=== PATIENT | female | born 1995 | race Caucasian/White ===

== ENCOUNTER → 2016-11-01 00:14 | Observation (INO) ==
[2016-10-31 23:04] VITALS: BP 124/60
[2016-10-31 23:21] LABS: Bilirubin,Urine Negative (Negative); Blood,Urine Moderate (Negative); Clarity,Urine Cloudy (Clear); Color,Urine Yellow (Yellow); Glucose,Urine (UA) Normal (Normal); Ketones,Urine Negative (Negative); Leukocyte Esterase,Urine Large (Negative); Nitrite,Urine Negative (Negative); PH,Urine 7.5 pH Units (5.0-8.0); Protein,Urine 100 mg/dL (Neg-Trace); Specific Gravity,Urine 1.007 (1.010-1.025); Urobilinogen,Urine Normal (Normal)
[2016-10-31 23:22] LABS: Bacteria,Urine Many per hpf (None-Few); Hyaline Casts,Urine None Seen per lpf (None-Few); Squamous Epithelial Cell,Urine Many per lpf (None-Few); WBC,Urine 50-100 per hpf (0-3)
--- NOTE | 2016-11-01 00:03 | Discharge Summary ---
Date of Encounter: 11/01/16 Time of Encounter: 00:01 - Discharge Diagnosis (1) 20 weeks gestation of Priority: Secondary Status: Acute Comments: admit for observation (2) UTI (urinary tract infection) Priority: Primary Status: Acute Comments: Treat with Macrobid 100 mg PO BID x 7 days follow up as scheduled in office Qualifiers: Urinary tract infection type: acute cystitis Hematuria presence: without hematuria Qualified Code(s): N30.00 - Acute cystitis without hematuria - Discharge Medications Prescriptions: Nitrofurantoin (BID) [Macrobid] 100 mg PO BID #14 capsule Home Medications: Tablet 1 tab PO DAILY 10/31/16 [History] Nitrofurantoin (BID) [Macrobid] 100 mg PO BID #14 capsule 11/01/16 [Rx] Allergies/Adverse Reactions: Allergies No Known Allergies Allergy (Verified 10/31/16 22:51) Data Procedures and tests throughout hospitalization: Laboratory Tests 10/31/16 23:05 Urine Color Yellow Urine Clarity Cloudy A Urine pH 7.5 Ur Specific [place] 1.007 L Urine Protein 100 H Urine Glucose (UA) Normal Urine Ketones Negative Urine Blood Moderate H Urine Nitrite Negative Urine Bilirubin Negative Urine Urobilinogen Normal Ur Leukocyte Esterase Large H Urine Microscopic RBC 5-15 H Urine Microscopic WBC 50-100 H Ur Squamous Epith Cells Many H Urine Bacteria Many H Hyaline Casts None Seen Ur Culture Indicated? YES A Labs on day of discharge: Labs from last 24 hours 10/31/16 23:05 Urine Color Yellow Urine Clarity Cloudy A Urine pH 7.5 Ur Specific [place] 1.007 L Urine Protein 100 H Urine Glucose (UA) Normal Urine Ketones Negative Urine Blood Moderate H Urine Nitrite Negative Urine Bilirubin Negative Urine Urobilinogen Normal Ur Leukocyte Esterase Large H Urine Microscopic RBC 5-15 H Urine Microscopic WBC 50-100 H Ur Squamous Epith Cells Many H Urine Bacteria Many H Hyaline Casts None Seen Ur Culture Indicated? 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 Patient was assessed by RN. FHT 140's. no contractions noted. Patient discharged home. Time Attestation: Total time spent providing and/or coordinating discharge services: Exam - Constitutional Vitals: Temp Pulse Resp BP 97.4 F L 86 14 124/60 10/31/16 22:55 10/31/16 22:55 10/31/16 22:55 10/31/16 22:55 - VTE Reasons for not Prescribing Prophylaxis: Treatment not Indicated - Low risk for VTE
== END | disposition home or self-care (01) ==
LOC: 1NENULAB
PROVIDERS: ADMIT Advanced Practice Midwife; ATTEND Advanced Practice Midwife

== ENCOUNTER → 2017-03-04 17:02 | Observation (INO) ==
--- NOTE | 2017-03-04 16:04 | OB/GYN Progress Note ---
Date of Encounter: 03/04/17 Time of Encounter: 16:02 - Assessment and Plan (1) 38 weeks gestation of Current Visit: Yes Status: Acute (2) Vaginal discharge during in third trimester Current Visit: Yes Status: Acute SSE with negative pool, nitrazine and fern. Physiologic appearing discharge in vault. (3) NST (non-stress test) reactive Current Visit: Yes Status: Acute Subjective - Subjective Interval history: 21 year-old presenting at 38 weeks with c/o one small gush of clear fluid and increased vaginal discharge since 1400 today. She also reports some occassional abdominal tightening. No other complaints. Good FM. Antepartum ROS: loss of fluid, movement normal, no vaginal bleeding, no contractions Objective - Vital Signs Vital Signs: Intake and Output 03/04/17 03/04/17 03/04/17 07:59 15:59 23:59 Other: Weight 66.6 kg Patient Weight 03/04/17 23:59 Weight 66.6 kg - Exam FHR: category 1 FHR comments: NST reactive Auscultation: bilateral: normal Abdomen: Present: soft, gravid. Absent: tenderness Uterus: Absent: tenderness Cervical dilation: 3, unchanged from last exam in office Comments: SSE with physiologic appearing discharge in vault. Negative pool, nitrazine, and fern.
[2017-03-04 16:06] LABS: Bilirubin,Urine Negative (Negative); Blood,Urine Negative (Negative); Clarity,Urine Cloudy (Clear); Color,Urine Yellow (Yellow); Glucose,Urine (UA) Normal (Normal); Ketones,Urine Negative (Negative); Leukocyte Esterase,Urine Trace (Negative); Nitrite,Urine Negative (Negative); Protein,Urine Negative (Neg-Trace); Specific Gravity,Urine 1.013 (1.010-1.025); Urobilinogen,Urine Normal (Normal)
[2017-03-04 16:07] LABS: Bacteria,Urine Few per hpf (None-Few); Hyaline Casts,Urine None Seen per lpf (None-Few); RBC,Urine 0-3 per hpf (0-3); Squamous Epithelial Cell,Urine Many per lpf (None-Few)
== END | disposition home or self-care (01) ==
LOC: 1NENULAB
PROVIDERS: ADMIT Registered Nurse; ATTEND Registered Nurse

== ENCOUNTER 2017-03-10 09:23 | Observation (INO) ==
--- NOTE | 2017-03-10 10:16 | OB/GYN Progress Note ---
Date of Encounter: 03/10/17 Time of Encounter: 10:14 - Assessment and Plan (1) Vaginal bleeding during , antepartum Current Visit: Yes Status: Acute Speculum exam shows vaginal vault with jernigan discharge, very little blood noted. Nitrazine equivocal, Fern negative, VE 3/80/-2. Vaginosis panel sent and pending. Pt not feeling contractions. Will discharge to home with labor precautions. Reactive NST baseline 145 Qualifiers: Trimester: third trimester Qualified Code(s): O46.93 - Antepartum hemorrhage, unspecified, third trimester (2) NST (non-stress test) reactive Current Visit: No Status: Acute Baseline 145 Subjective - Subjective Interval history: Pt reports she started to have vaginal bleeding this morning. Pt states it ranges from light pink to a "more concerning red". Pt states she saturated a pantyliner in 2 hours. Came in for evaluation. Reports good movement, she think she is leaking some clear fluid as well. Occasional cramping, but does not feel they are contractions. No other complaints. Antepartum ROS: new complaints, loss of fluid, vaginal bleeding, movement normal, no contractions Objective - Vital Signs Vital Signs: Intake and Output 03/09/17 03/10/17 03/10/17 23:59 07:59 15:59 Other: Weight 67.5 kg Patient Weight 03/10/17 23:59 Weight 67.5 kg - Exam FHR: auscultation normal FHR comments: Baseline 145 reactive NST Auscultation: bilateral: normal Abdomen: Present: normal appearance, soft, gravid Uterus: Present: normal Cervical dilation: 3/80/-2/vtx
[2017-03-10 11:32] LABS: Gardnerella DNA ***DETECTED*** (Not Detect); Trichomonas DNA Not Detected (Not Detect)
[2017-03-10 11:33] LABS: Candida DNA Not Detected (Not Detect)
== END 2017-03-10 10:26 | disposition home or self-care (01) ==
LOC: 1NENULAB
PROVIDERS: ADMIT Advanced Practice Midwife; ATTEND Advanced Practice Midwife

== ENCOUNTER 2017-03-10 23:51 | Inpatient (IN) ==
[2017-03-10 22:04] LABS: Basophils % 0.2 %; Eosinophils # 0.1 K/mcL (0.0-0.6); Eosinophils % 0.7 %; Hematocrit 35.1 % (35.3-44.9); Hemoglobin 11.8 g/dL (11.5-15.4); Immature Granulocytes % 1.2 % (0-4); Lymphocytes # 2.8 K/mcL (0.6-4.6); Lymphocytes % 15.3 %; Mean Corpuscular HGB Conc 33.6 g/dL (31.6-35.5); Mean Corpuscular Hemoglobin 28.2 pg (28.0-33.3); Mean Corpuscular Volume 83.8 fL (83.0-100.0); Mean Platelet Volume 8.8 fL (9.4-12.4); Monocytes # 2.7 K/mcL (0.0-1.3); Monocytes % 14.6 %; Neutrophils # 12.5 K/mcL (1.6-8.9); Platelet Count 327 K/mcL (140-400); Red Blood Count 4.19 M/mcL (3.82-4.97); Red Cell Distribution Width 13.6 % (11.5-14.5)
--- NOTE | 2017-03-10 22:49 | OB/GYN History & Physical ---
Date of Encounter: 03/10/17 Time of Encounter: 22:50 Assessment and Plan (1) Elective induction of labor planned Current visit: Yes Status: Acute Admit to labor and delivery Cytotec 50mcg po x1 Nuabin and epidural as desired Clear liquid diet Anticipate (2) 39 weeks gestation of Current visit: Yes Status: Acute (3) Uterine contractions Current visit: Yes Status: Acute Since pt is scheduled for AM induction and continues to come for triage evaluations will go ahead and start induction tonight. (4) Bacterial vaginosis Current visit: Yes Status: Acute start ATB History of Present Illness Chief complaint: contractions HPI: Ms. Rubio is a 21 year old female presents with increased pain with contractions and occasional light pink vaginal bleeding. Reports good movement, denies leaking of fluid. Pt is scheduled for elective IOL at 0600, so will keep for induction of labor Labs A+, Rubella Immune, GBS +, all other serologies negative Past Med Surg Social Fam HX - Past Medical History Medical history: no medical history Psychiatric history: no psych history - Past Surgical History Surgical History: no surgical history - Social History Smoking Status: Former smoker Smokeless Tobacco Status: No Alcohol use: none Drug use: none - Family History Mother Adopted: No Living Status: Still Living Hx Family Cardiac Disorders: No Hx Family Respiratory Disorders: No Hx Family Cancer: No Hx Family GI Disorders: No Hx Family Endocrine Disorder: No Hx Family Neuromuscular Disorders: No Hx Family Neurologic Disorders: No Hx Family HEENT Disorders: No Hx Family Autoimmune Disorders: No Obstetrical History - Pregnancies : 1 Para: 0 Term: 0 : 0 Ab's: 0 Livin Medications and Allergies Tablet 1 tab PO DAILY 10/31/16 [History] Allergies No Known Allergies Allergy (Verified 03/10/17 21:21) Exam - Constitutional Constitutional: well developed, well nourished, no acute distress, average body habitus - Neck Neck exam: full ROM - Lungs Respiratory exam: CTAB - Cardiovascular Cardiovascular exam: RRR - Breasts Breast: bilateral: normal - Abdomen Abdomen: Present: bowel sounds normal, gravid, non tender - Cervix Dilation: 3 (Per RN) Effacement: 80 - Uterus Uterus exam: Present: normal size, normal contour - Anus/Rectum Anus/Rectum: Present: normal perianal skin Results Result Diagrams: 03/10/17 21:55 Abnormal lab results WBC 18.5 K/mcL (4.3-11.1) H 03/10/17 21:55 Hct 35.1 % (35.3-44.9) L 03/10/17 21:55 MPV 8.8 fL (9.4-12.4) L 03/10/17 21:55 Neutrophils # 12.5 K/mcL (1.6-8.9) H 03/10/17 21:55 Monocytes # 2.7 K/mcL (0.0-1.3) H 03/10/17 21:55 All other labs normal. - VTE Reasons for not Prescribing Prophylaxis: Treatment not Indicated - Low risk for VTE
[~2017-03-10 23:51] MED LIST: *HR* Nalbuphine 20 MG/ML AMPUL IVP PRN; Famotidine 20 MG/2 ML VIAL IVP PRN; Metoclopramide 10 MG/2 ML VIAL IVP PRN; Naloxone 0.4 MG/ML INJ IVP PRN; Penicillin G Potassium 5,000,000 UNIT in D5% in Water (Mini-Bag+) 100 ML IVPB ONE; Ringers Solution, Lactated 1,000 ML IVC SCH; miSOPROStol 25 MCG TABLET PO PRN
[2017-03-11] MEDS: Penicillin G Potassium 2,500,000 UNIT in D5% in Water 100 ML IVPB SCH ×3 (03:09→10:16)
[2017-03-11] MEDS ORDERED: Oxytocin 20 units/ LR 1000 mL 20 UNIT/1,000 ML BAG IVC SCH ×2 (05:00→14:31)
[2017-03-11] MEDS ORDERED: *HR* FentaNYL (PF) 100 MCG/2 ML VIAL EP ONE (05:29)
[2017-03-11] MEDS ORDERED: *HR* Ropivacaine/PF 0.2% 10 ML AMPUL EP ONE (05:29)
[2017-03-11] MEDS ORDERED: Ringers Solution, Lactated 500 ML IVC ONE (05:29)
[2017-03-11] MEDS ORDERED: EPHEDrine 50 MG/ML VIAL IVP PRN (05:29)
[2017-03-11] MEDS ORDERED: Epidural Premix (fent/bupiv) 110 ML EP SCH (05:30)
[2017-03-11] MEDS ORDERED: *HR* FentaNYL (PF) 100 MCG/2 ML VIAL ONE (05:35)
[2017-03-11] MEDS ORDERED: Epidural Premix (fent/bupiv) 110 ML EP ONE (05:35)
--- NOTE | 2017-03-11 06:05 | Anesthesia Procedures ---
Date of Encounter: 03/11/17 Time of Encounter: 05:40 Procedures: Anesthesia - Epidural/Spinal Patient ID/Chart reviewed: Yes Patient examined: Yes OB Eval: Gestational age: 39+ OB Eval: : 1 OB Eval: Hx Para: 0 OB Eval: Contractions: Non-stressed pattern Consent Obtained: Yes Supplemental Oxygen: None/Room Air Site Prep: Aseptic Technique, Sterile prep and drape, 0.5% Chlorhexidine/Alcohol Patient position: upright Local Anesthetic: Lidocaine 1% Amount of Local Anesthetic used: 2.5 Touhy Needle Gauge: 18 Touhy Needle Depth (cm): 6 Catheter Depth at Skin (cm): 13 Test Dose (1.5% Lido + Epi): Volume given (mls): 3 Test Dose Result: Negative Loading Dose: Fentanyl (mcg): 100 Loading Dose: Other: Ropivacaine 0.5% 8mL Loading Dose Administered: Thru Catheter Infusion Med: 0.125% Bupivacaine w/ 2 mcg/ml Fentanyl Infusion Rate (mls/hr): 14 (Bolus 4mL q15min; Max 3/hr) Catheter Secured in Place: Tegaderm Interspace Used: L2-L3 Loss of Resistance (YOAV): Yes Blood: No CSF: No Paresthesia: No Procedure: x1 attempt. Patient tolerated procedure well. Vitals + FHT's: VSS and FHR stable throughout. See nursing documentation.
--- NOTE | 2017-03-11 06:08 | Anesthesia Evaluation PreOp ---
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 Any Significant HX Other Medical History: Denies Any Significant HX Anesthesia History: No Prior Anesthetic Complications (No family history of issues with anesthesia) : Yes Alcohol Use: none Drug use: none Medications and Allergies Tablet 1 tab PO DAILY 10/31/16 [History] Allergies No Known Allergies Allergy (Verified 03/10/17 21:21) - Meds/Allergy Pre-op Review Medications Reviewed: Yes Allergies Reviewed: Yes Beta Blockers on Current Med List: No Anesthesia Results - Labs 03/10/17 21:55 Anesthesia Exam Height: 1.55m Weight: 67.6kg NPO (# of Hours): >4 Pain Scale: 9 (with contraction) Pain Scale Used: Numeric (1 - 10) - HEENT Pupil (Motor): Pupils equal Mallampati: I Teeth: Normal Oral Opening: Greater than 3 - COLD STORAGE SUPERINTENDENT LOC: Oriented COLD STORAGE SUPERINTENDENT Motor: Normal RUE, Normal LUE, Normal RLE, Normal LLE, Normal Face COLD STORAGE SUPERINTENDENT Sensory: Normal: RUE, LUE, RLE, LLE, Face - Cardiac Rhythm: Regular Murmur: None JVD: No Carotid Bruit: No - Pulmonary Breath Sounds: bilateral Clear Respiratory Effort: Symmetrical Anesthesia Assess/Plan ASA Score: 2 Modified Kristin Scale for Level of Consciousness: Cooperative, oriented, and tranquil Anesthetic Plan: Regional Monitoring Plan: Standard Monitors Recovery Plan: Other
[2017-03-11] MEDS ORDERED: EPHEDrine 50 MG/ML VIAL ONE (06:09)
--- NOTE | 2017-03-11 07:03 | OB Labor Progress Note ---
Date of Encounter: 03/11/17 Time of Encounter: 07:01 Labor Progress Note - Subjective Subjective: Pt resting in bed with epidrual at this time - Cervix Cervix: 5-6 Per RN - Heart Tones Heart Tones: 135/moderate/-accles/-decels Cat I - Plan Plan: Pt continues in natural labor pattern. Continue current management plan PCN for GBS Anticipate
--- NOTE | 2017-03-11 10:12 | OB Labor Progress Note ---
Date of Encounter: 03/11/17 Time of Encounter: 10:09 Labor Progress Note - Subjective Subjective: Patient resting comfortably with epidural in place. Pitocin on 8 milliunits. - Cervix Cervix: 5.5/100/0 - Heart Tones Heart Tones: 150 bpm moderate variability +15x15 accels no decels noted. Cat. 1 tracing. - Chuichu Chuichu: 1.5-4 min apart - Interventions Interventions: SVE, AROM moderate amount of clear fluid. Patient tolerated well. - Plan Plan: Continue labor management.
[2017-03-11] MEDS ORDERED: Ibuprofen 600 MG TABLET PO ONE (14:20)
--- NOTE | 2017-03-11 14:26 | OB/GYN Procedure Note ---
Delivery - Delivery Date: 03/11/17 Provider: Sarahy Shelton Intrapartum events: none Delivery induction: AROM Delivery augmentation: rupture of membranes, pitocin Delivery monitor: external FHT, external uterine Anesthesia: epidural Estimated Blood Loss: 300 - Infant (s) A Infant Delivery Date: 03/11/17 Infant Delivery Time: 13:54 Presentation: vertex Position: ALLY Route of delivery: Gender: Female Viability: Viable Pounds: 7 Ounces: 8 Weight Gram: 3.395 kg at 1 minute: 6 at 5 mins: 8 Shoulder Dystocia: not encountered Placenta: spontaneous, uterine exploration Cord: nuchal cord (x1), 3 umbilical vessels, nuchal reduced - Repair Episiotomy: none Laceration Description: Periurethral (bilateral repaired with 4-0 vicryl) - Complications Delivery complications: none - Disposition Mom disposition: stable in LDR [place] disposition: stable in LDR - Comments Comments: Called to LDR patient pushing with contractions. patient was placed in stirrups and prepped for vaginal delivery. Under maternal effort patient spontaneously delivered a female over an intact perineum. Nuchal cord x1 was reduced, no shoulder dystocia or meconium was noted. Infant was placed on maternal abdomen. Cord was clamped and cut after pulsation ceased. Placenta was delivered spontaneously and visually intact. Bilateral labial lacerations were repaired with 4-0 vicryl. Patient tolerated well. Pericare was provided. Ice pack to perineum. All counts correct. Both Mother and stable in LDR for 2 hour recovery.
[2017-03-11] MEDS ORDERED: Lanolin 7 G OINT...G. TP PRN (14:31)
[2017-03-11] MEDS ORDERED: Benzocaine/Menthol 56 GM AEROSOL SPRAY TP PRN (14:31)
[2017-03-11] MEDS ORDERED: Measles/Mumps/Rubella Vacc 0.5 ML VIAL SQ PRN (14:31)
[2017-03-11] MEDS ORDERED: Acetaminophen 325 MG TABLET PO PRN (14:31)
[2017-03-11] MEDS ORDERED: *HR* HYDROcodone/Acet 5/325 mg TABLET PO PRN (14:31)
[2017-03-11] MEDS: Ibuprofen 600 MG TABLET PO PRN (14:51)
[2017-03-12] MEDS: Ibuprofen 600 MG TABLET PO PRN ×2 (01:09→07:30)
[2017-03-12 07:38] VITALS: BP 92/54
--- NOTE | 2017-03-12 08:13 | Discharge Summary ---
Date of Encounter: 03/12/17 Time of Encounter: 08:11 - Discharge Diagnosis (1) Vaginal delivery Priority: Primary Status: Acute Comments: Continue routine care (2) Breast feeding status of mother Priority: Secondary Status: Acute Comments: support prn - Discharge Medications Prescriptions: Ibuprofen [Motrin] 600 mg PO Q6HR PRN #60 tablet PRN Reason: Cramping Home Medications: Tablet 1 tab PO DAILY 10/31/16 [History] Ibuprofen [Motrin] 600 mg PO Q6HR PRN #60 tablet 03/12/17 [Rx] Lanolin [Lansinoh] 1 appl TP TID PRN #0 oint...g. 03/12/17 [Rx] Vit/FA 1 each PO DAILY tablet 03/12/17 [Rx] Allergies/Adverse Reactions: Allergies No Known Allergies Allergy (Verified 03/10/17 21:21) Data Procedures and tests throughout hospitalization: Laboratory Tests 03/10/17 21:55 WBC 18.5 H RBC 4.19 Hgb 11.8 Hct 35.1 L MCV 83.8 MCH 28.2 MCHC 33.6 RDW 13.6 Plt Count 327 MPV 8.8 L Immature Gran % 1.2 Seg Neutrophils % 68.0 Lymphocytes % 15.3 Monocytes % 14.6 Eosinophils % 0.7 Basophils % 0.2 Neutrophils # 12.5 H Lymphocytes # 2.8 Monocytes # 2.7 H Eosinophils # 0.1 Basophils # 0.0 Date of admission: 03/11/17 00:02 Primary care physician: Ben Ramires MD Consults: 03/11/17 14:31 Consult to Rn Infusion [CONS] Routine Comment: Vaginal delivery, consult needed Discharging clinician: Sarahy Shelton Anticipated date of discharge: 03/12/17 - Patient Status Disposition: Home, Self-Care Condition: Good Functional capacity at discharge: independent ambulation - Discharge Instructions Follow Up With: Ben Ramires MD [Primary Care Provider] - Sarahy Shelton CNM [Non-Partnered Physician] - - Diet and Activity Activity: increase activity as tolerated Diet: regular diet Hospital Course Reason for admission: active labor Delivery: Episiotomy: none Laceration: other (bilateral labial) Other procedures: none complications: none Discharge diagnosis: IUP at term delivered baby: female (breast feeding) Time Attestation: Total time spent providing and/or coordinating discharge services: Time Spent: Less than 30 minutes Exam - Constitutional Vitals: Temp Pulse Resp BP Pulse Ox 97.6 F 74 16 92/54 97 03/12/17 07:37 03/12/17 07:37 03/12/17 07:37 03/12/17 07:37 03/12/17 01:31 General appearance IM: A&O X 3, pleasant, answers questions appropriately - Respiratory Respiratory exam: Present: CTAB - Cardiovascular Cardiovascular exam IM: Present: RRR, +S1, +S2 - GI/Abdominal GI/Abdominal exam IM: normal bowel sounds - Uterine Tone: Firm Uterus Position: 1 Finger Below Umbilicus, Midline - Extremities Exam Extremities exam IM: Present: full ROM, normal capillary refill, normal inspection - Neurological Exam Neurological exam: alert, oriented X3, reflexes normal
[2017-03-12] MEDS ORDERED: Prenatal Vit/FA 1 EACH TABLET PO SCH (09:00)
== END 2017-03-12 17:30 | disposition home or self-care (01) | DRG 774 ==
LOC: 1NENULAB → 1NENUOBS 03-11 15:30
PROVIDERS: ADMIT Advanced Practice Midwife; ATTEND Advanced Practice Midwife